=== PATIENT | female | born 1955 | race Caucasian/White ===

== ENCOUNTER 2016-05-11 14:40 | Outpatient (RCR) | payer OTHER ==
[~2016-05-11 14:40] MED LIST: ACDPT; ESCT10T; PHEN37.582
== END 2016-05-15 | disposition home or self-care (01) ==
DX: S52.502D Unspecified fracture of the lower end of left radius, subsequent encounter for closed fracture with routine healing (principal)

== ENCOUNTER 2016-05-18 14:38 | Outpatient (RCR) | payer OTHER ==
--- OUTSIDE RECORDS SUMMARY | 2016-05-18 14:41 | XMS REPORT | Continuity of Care Document ---
Author Author [facility] Organization [facility] Address Unknown Phone Unavailable Care Team Providers Care Autotransfusionist Name Role Phone LONA HALE MD PCP Insurance Providers Payer Name Policy Number Subscriber Name Relationship [employer] [id number] Joni Wisdom Self / Same As Patient Advance Directives Directive Response Recorded Date/Time Advance Directives No 01/25/09 5:32pm Problems No problem information available. Medications Current Home Medications Medication Dose Units Route Directions Days/Qty Instructions Start Date Escitalopram Oxalate 10 Mg 01/14/07 Phentermine Hcl 37.5 Mg 01/25/09 Acetaminophen/Diphenhydramine 1 Ea 01/25/09 Social History Social History Problem Response Recorded Date/Time Recent Foreign Travel No 02/15/2016 2:41pm Hospital Discharge Instructions No hospital discharge instructions. Plan of Care Prescriptions See Medication Section Functional Status No functional status results. Allergies, Adverse Reactions, Alerts Allergen Type Severity Reaction Status Last Updated Penicillins ([id number]) Allergy Unknown Active 01/14/07 Immunizations No immunization records. Vital Signs No known vital signs results. Results No known relevant diagnostic tests, laboratory data and/or discharge summary. Procedures No known history of procedures. Encounters Encounter Location Arrival/Admit Date Discharge/Depart Date Attending Provider Discharged Recurring [facility] 05/11/16 2:40pm 11:59pm LONA HALE MD
== END 2016-06-05 13:12 | disposition home or self-care (01) ==
DX: S52.502D Unspecified fracture of the lower end of left radius, subsequent encounter for closed fracture with routine healing (principal)

== ENCOUNTER 2016-08-30 15:21 | Outpatient (RCR) | payer OTHER | END 2016-09-20 10:43 | disposition home or self-care (01) | PROVIDERS: ATTEND Orthopaedic Surgery | DX: S52.502D Unspecified fracture of the lower end of left radius, subsequent encounter for closed fracture with routine healing (principal) ==

== ENCOUNTER → 2019-04-07 | Outpatient (CLI) | payer OTHER ==
--- NOTE | 2019-04-07 09:49 | Diagnostic Imaging Report ---
INDICATION: Acute bronchitis PA and lateral views of the chest are obtained. Comparison is made to the study of 05/10/2010. Heart size and pulmonary vascularity are within normal limits. There is faint patchy density in the left upper lobe which may represent area of bronchopneumonia. There is chronic mild compression deformity of a lower thoracic vertebral body. Otherwise, there is no pneumothorax, infiltrate or significant pleural fluid. IMPRESSION: Mild patchy density in left upper lobe may represent area of bronchopneumonia. Follow-up study may be of value to document resolution. Dictated by: Dictated on workstation # [id number]
== END ==
LOC: RAD 09:19
PROVIDERS: ATTEND Nurse Practitioner Family
DX: J20.9 Acute bronchitis, unspecified (principal); J98.4 Other disorders of lung
CPT/HCPCS: 71046